=== PATIENT | male | born 1940 | race Caucasian/White ===

== ENCOUNTER 2021-11-30 05:53 | Inpatient (IN) ==
[2021-11-30] MEDS ORDERED: Furosemide 40 MG/4 ML VIAL IVP ONE (06:08)
[2021-11-30] MEDS ORDERED: cefTRIAXone 2,000 MG in 0.9 % Sodium Chloride Mini Bag 100 ML IVPB ONE (06:37)
[2021-11-30] MEDS ORDERED: Azithromycin 500 MG in 0.9 % Sodium Chloride 250 ML IVPB ONE (06:37)
[2021-11-30 06:56] LABS: Basophils % 0.2 %; Eosinophils % 0.1 %; Hematocrit 40.1 % (37.5-50.1); Hemoglobin 13.2 g/dL (12.9-16.9); Immature Granulocytes % 0.4 % (0-4); Lymphocytes # 1.2 K/mcL (0.6-4.6); Lymphocytes % 10.2 %; Mean Corpuscular HGB Conc 32.9 g/dL (31.6-35.5); Mean Corpuscular Hemoglobin 31.5 pg (28.0-33.3); Mean Corpuscular Volume 95.7 fL (83.0-100.0); Mean Platelet Volume 10.9 fL (9.4-12.4); Monocytes # 0.6 K/mcL (0.0-1.3); Monocytes % 5.2 %; Neutrophils # 9.6 K/mcL (1.6-8.9); Platelet Count 124 K/mcL (140-400); Red Blood Count 4.19 M/mcL (4.19-5.50); Red Cell Distribution Width 12.5 % (11.5-14.5); Segmented Neutrophils % 83.9 %; White Blood Count 11.4 K/mcL (4.3-11.1)
[2021-11-30 07:12] LABS: BUN/Creatinine Ratio 19 (6-26); Blood Urea Nitrogen 14 mg/dL (8-23); Calcium 8.6 mg/dL (8.6-10.3); Carbon Dioxide 29 mEq/L (23-29); Chloride 104 mEq/L (98-107); Glucose 148 mg/dL (70-105); Osmolality,Calculated 293 (280-300); Potassium 4.1 mEq/L (3.5-5.1); Sodium 140 mEq/L (136-145); eGFR For African Americans > 60 (> 60); eGFR For Non-African Americans > 60 (> 60)
[2021-11-30 07:13] LABS: Troponin I < 0.03 ng/mL (< 0.04)
[2021-11-30] MEDS ORDERED: Naloxone 0.4 MG/ML INJ IVP PRN ×2 (10:54→11:27)
[2021-11-30] MEDS ORDERED: TORSEMIDE 5 MG PO PRN (11:09)
[2021-11-30] MEDS ORDERED: Benzonatate 100 MG CAPSULE PO PRN (11:17)
[2021-11-30] MEDS ORDERED: EPINEPHrine 1 MG/ML VIAL SQ PRN (11:23)
[2021-11-30] MEDS ORDERED: GuaiFENesin Liq 200 MG/10 ML UDC PO PRN (11:25)
[2021-11-30] MEDS ORDERED: Ondansetron ODT 4 MG TAB.RAPDIS SL PRN (11:27)
[2021-11-30] MEDS: MethylPREDNISolone 40 MG/ML VIAL IVP SCH ×2 (12:09→17:43)
[2021-11-30] MEDS: Carbidopa/Levodopa ER 50/200 TABLET PO SCH ×3 (13:04→20:57)
[2021-11-30] MEDS: BRINZOLAMIDE OP SCH ×2 (15:05→20:57)
[2021-11-30] MEDS: BRIMONIDINE TART OP SCH ×2 (15:05→20:57)
[2021-11-30 15:09] LABS: Adenovirus Not Detected (Not Detect); Bordetella Pertussis Not Detected (Not Detect); Chlamydophila pneumoniae Not Detected (Not Detect); Coronavirus 229E Not Detected (Not Detect); Coronavirus HKU1 Not Detected (Not Detect); Coronavirus NL63 Not Detected (Not Detect); Coronavirus OC43 Not Detected (Not Detect); Human Metapneumovirus Not Detected (Not Detect); Human Rhinovirus/Enterovirus Not Detected (Not Detect); Influenza A Subtype 2009 H1 Not Detected (Not Detect); Influenza B Not Detected (Not Detect); Mycoplasma pneumoniae Not Detected (Not Detect); Parainfluenza Virus 1 Not Detected (Not Detect); Parainfluenza Virus 2 Not Detected (Not Detect); Parainfluenza Virus 3 Not Detected (Not Detect); Parainfluenza Virus 4 Not Detected (Not Detect); Respiratory Syncytial Virus Not Detected (Not Detect); SARS-CoV-2 Not Detected (Not Detect)
[2021-11-30] MEDS: Morphine Sulfate ER (12 HR) 15 MG TABLET.ER PO SCH ×2 (15:15→20:57)
[2021-11-30] MEDS ORDERED: MethylPREDNISolone 40 MG/ML VIAL IVP SCH (16:00)
[2021-11-30] MEDS ORDERED: Dextrose Gel 15 GM/37.5 ML TUBE PO PRN ×2 (17:19)
[2021-11-30] MEDS ORDERED: D5% in Water 1,000 ML IVC PRN (17:19)
[2021-11-30] MEDS ORDERED: *HR* Dextrose 50 % in Water (Syg) 50 ML SYRINGE IVP PRN (17:19)
[2021-11-30] MEDS ORDERED: Ibuprofen 400 MG TABLET PO PRN (17:52)
[2021-11-30] MEDS: tiZANidine 4 MG TABLET PO PRN (18:08)
[2021-11-30] MEDS ORDERED: Ipratropium 1 PUFF INHALER IH PRN (18:56)
[2021-11-30] MEDS: Budesonide/Formoterol 160/4.5 1 PUFF INH IH SCH (20:16)
[2021-11-30] MEDS: Insulin LISPRO 300 UNITS/3 ML VIAL SUBQ SCH (20:52)
[2021-11-30] MEDS: Pregabalin 75 MG CAPSULE PO SCH (20:57)
[2021-11-30] MEDS: DROXIDOPA 100 MG PO SCH (20:58)
[2021-12-01] MEDS: MethylPREDNISolone 40 MG/ML VIAL IVP SCH ×4 (00:25→23:54)
[2021-12-01 05:16] LABS: Basophils % 0.1 %; Hemoglobin 13.1 g/dL (12.9-16.9); Immature Granulocytes % 0.4 % (0-4); Lymphocytes % 13.3 %; Mean Corpuscular HGB Conc 33.6 g/dL (31.6-35.5); Mean Corpuscular Hemoglobin 31.4 pg (28.0-33.3); Mean Corpuscular Volume 93.5 fL (83.0-100.0); Mean Platelet Volume 11.8 fL (9.4-12.4); Monocytes # 0.1 K/mcL (0.0-1.3); Monocytes % 1.9 %; Neutrophils # 6.1 K/mcL (1.6-8.9); Platelet Count 145 K/mcL (140-400); Red Blood Count 4.17 M/mcL (4.19-5.50); Red Cell Distribution Width 12.4 % (11.5-14.5); Segmented Neutrophils % 84.3 %; White Blood Count 7.3 K/mcL (4.3-11.1)
[2021-12-01] MEDS: *HR* Enoxaparin 40 MG/0.4 ML SYRINGE SQ SCH (05:33)
[2021-12-01] MEDS: Morphine Sulfate ER (12 HR) 15 MG TABLET.ER PO SCH ×3 (06:46→20:06)
[2021-12-01] MEDS: polyethylene glycoL 3350 17 GM POWD.PACK PO SCH (09:02)
[2021-12-01] MEDS: Furosemide 20 MG TABLET PO SCH (09:04)
[2021-12-01] MEDS: Pregabalin 75 MG CAPSULE PO SCH ×2 (09:05→20:05)
[2021-12-01] MEDS: FLUoxetine 20 MG CAPSULE PO SCH (09:06)
[2021-12-01] MEDS: Carbidopa/Levodopa ER 50/200 TABLET PO SCH ×4 (09:07→20:06)
[2021-12-01] MEDS: Aspirin Enteric Coated 81 MG Tablet PO SCH (09:07)
[2021-12-01] MEDS: Metoprolol XL (24 HR) Succ 25 MG TAB.ER.24H PO SCH (09:08)
[2021-12-01] MEDS: Cholecalciferol (D-3) 1,000 UNIT (25MCG) TABLET PO SCH (09:08)
[2021-12-01] MEDS: RAMIPRIL 1.25 MG PO SCH (09:09)
[2021-12-01] MEDS: DROXIDOPA 100 MG PO SCH ×2 (09:09→21:10)
[2021-12-01] MEDS: BRIMONIDINE TART OP SCH ×3 (09:09→21:10)
[2021-12-01] MEDS: BRINZOLAMIDE OP SCH ×3 (09:09→21:10)
[2021-12-01 09:10] LABS: BUN/Creatinine Ratio 19 (6-26); Blood Urea Nitrogen 15 mg/dL (8-23); Carbon Dioxide 24 mEq/L (23-29); Chloride 103 mEq/L (98-107); Glucose 179 mg/dL (70-105); Magnesium 2.1 mg/dL (1.6-2.6); Osmolality,Calculated 295 (280-300); Potassium 4.5 mEq/L (3.5-5.1); Sodium 140 mEq/L (136-145); eGFR For African Americans > 60 (> 60); eGFR For Non-African Americans > 60 (> 60)
[2021-12-01] MEDS: Azithromycin 500 MG in 0.9 % Sodium Chloride 250 ML IVPB SCH (09:18)
[2021-12-01] MEDS: cefTRIAXone 1,000 MG in 0.9 % Sodium Chloride Mini Bag 100 ML IVPB SCH (09:19)
[2021-12-01] MEDS: Budesonide/Formoterol 160/4.5 1 PUFF INH IH SCH ×2 (09:46→20:48)
[2021-12-01] MEDS: Insulin LISPRO 300 UNITS/3 ML VIAL SUBQ SCH ×4 (09:49→21:11)
[2021-12-01] MEDS: tiZANidine 4 MG TABLET PO PRN (20:05)
[2021-12-02] MEDS: tiZANidine 4 MG TABLET PO PRN (05:11)
[2021-12-02] MEDS: Morphine Sulfate ER (12 HR) 15 MG TABLET.ER PO SCH (06:05)
[2021-12-02] MEDS: *HR* Enoxaparin 40 MG/0.4 ML SYRINGE SQ SCH (06:05)
[2021-12-02 06:45] VITALS: BP 118/72; PULSE 65; TEMP 98.3
[2021-12-02] MEDS: polyethylene glycoL 3350 17 GM POWD.PACK PO SCH (07:34)
[2021-12-02] MEDS: Pregabalin 75 MG CAPSULE PO SCH (07:35)
[2021-12-02] MEDS: Aspirin Enteric Coated 81 MG Tablet PO SCH (07:38)
[2021-12-02] MEDS: Furosemide 20 MG TABLET PO SCH (07:38)
[2021-12-02] MEDS: Carbidopa/Levodopa ER 50/200 TABLET PO SCH ×2 (07:39→11:44)
[2021-12-02] MEDS: FLUoxetine 20 MG CAPSULE PO SCH (07:39)
[2021-12-02] MEDS: Cholecalciferol (D-3) 1,000 UNIT (25MCG) TABLET PO SCH (07:39)
[2021-12-02] MEDS: Metoprolol XL (24 HR) Succ 25 MG TAB.ER.24H PO SCH (07:40)
[2021-12-02] MEDS: RAMIPRIL 1.25 MG PO SCH (07:41)
[2021-12-02] MEDS: BRINZOLAMIDE OP SCH (07:41)
[2021-12-02] MEDS: DROXIDOPA 100 MG PO SCH (07:41)
[2021-12-02] MEDS: BRIMONIDINE TART OP SCH (07:41)
[2021-12-02] MEDS: Insulin LISPRO 300 UNITS/3 ML VIAL SUBQ SCH ×2 (07:43→11:44)
[2021-12-02 07:46] LABS: BUN/Creatinine Ratio 27 (6-26); Blood Urea Nitrogen 22 mg/dL (8-23); Calcium 8.8 mg/dL (8.6-10.3); Carbon Dioxide 32 mEq/L (23-29); Chloride 103 mEq/L (98-107); Glucose 170 mg/dL (70-105); Osmolality,Calculated 299 (280-300); Potassium 4.1 mEq/L (3.5-5.1); Sodium 141 mEq/L (136-145); eGFR For African Americans > 60 (> 60); eGFR For Non-African Americans > 60 (> 60)
[2021-12-02] MEDS: cefTRIAXone 1,000 MG in 0.9 % Sodium Chloride Mini Bag 100 ML IVPB SCH (07:46)
[2021-12-02 07:52] LABS: Immature Granulocytes % 0.2 % (0-4); Lymphocytes % 10.5 %; Mean Corpuscular HGB Conc 33.3 g/dL (31.6-35.5); Mean Corpuscular Hemoglobin 31.3 pg (28.0-33.3); Mean Platelet Volume 11.1 fL (9.4-12.4); Monocytes # 0.5 K/mcL (0.0-1.3); Monocytes % 5.2 %; Neutrophils # 7.8 K/mcL (1.6-8.9); Platelet Count 161 K/mcL (140-400); Red Blood Count 4.15 M/mcL (4.19-5.50); Red Cell Distribution Width 12.5 % (11.5-14.5); Segmented Neutrophils % 84.1 %; White Blood Count 9.3 K/mcL (4.3-11.1)
[2021-12-02] MEDS: Azithromycin 500 MG in 0.9 % Sodium Chloride 250 ML IVPB SCH (07:52)
[2021-12-02] MEDS: Budesonide/Formoterol 160/4.5 1 PUFF INH IH SCH (08:11)
[2021-12-02 08:17] VITALS: RESP 18; O2SAT 97
[2021-12-02] MEDS: MethylPREDNISolone 40 MG/ML VIAL IVP SCH (11:44)
== END 2021-12-02 13:10 | disposition home or self-care (01) | DRG 194 ==
LOC: EMEROOPIK 05:53 → INPPIK 05:53
PROVIDERS: ADMIT Internal Medicine; ATTEND Internal Medicine